=== PATIENT | male | born 2000 | race Hispanic/Latino ===

== ENCOUNTER 2024-07-11 06:41 | Emergency (ER) | payer BC ==
[2024-07-11] MEDS ORDERED: FAMOTIDINE 20 MG/2 ML VIAL IV ONE (08:19)
[2024-07-11] MEDS ORDERED: ONDANSETRON 4 MG/2 ML VIAL ONE (08:19)
[2024-07-11] MEDS ORDERED: NA CHLORIDE 0.9% 1,000 ML ONE (08:20)
--- OUTSIDE RECORDS SUMMARY | 2024-07-11 08:51 | XMS REPORT | Clinical Summary ---
Author Name Unknown Organization [facility] Address [address] [place] [address] Care Team Providers Care Workforce Manager Name Role Phone Michelle Veronica MD Primary Care Provider [phone] Social History Tobacco Use Types Packs/Day Years Used Date Smoking Tobacco: Never Assessed Sex and Gender Information Value Date Recorded Sex Assigned at Not on file Gender Identity Not on file Sexual Orientation Not on file Plan of Treatment Health Maintenance Due Date Last Done Comments COVID-19 Vaccine (2023-2 5 season) 2024 10/04/2020, 09/06/2020 Influenza Vaccine (#1) 2024 07/03/2019 Pneumococcal Vaccine: Pediatrics (0 to 5 Years) and At-Risk Patients (6 to 64 Years) Aged Out No longer eligible b ased on patient's age to complete this topic Care Teams Workforce Manager Relationship Specialty Start Date End Date Michelle Veronica MD [facility] [place] [address] [email or web address] PCP - General Gynecological Oncology 06/03/21
[2024-07-11 08:53] LABS: Albumin 4.2 g/dL (3.4-5.0); Anion Gap 7.1 mEq/L (5.0-15.0); Bilirubin Total 0.3 mg/dL (0.2-1.0); Globulin 4.1 g/dL (2.3-3.5); Potassium 4.1 mEq/L (3.5-5.1); Protein, Total 8.3 g/dL (6.4-8.2)
[2024-07-11 08:57] LABS: Absolute Basophils 0.1 K/uL (0-0.5); Absolute Eosinophils 0.2 K/uL (0-0.5); Absolute Lymphocytes (CBC) 0.9 K/uL (0.7-4.9); Absolute Monocytes 1.2 K/uL (0.1-1.3); Absolute Neutrophil 16.1 K/uL (1.8-8.0); Basophils % 0.3 % (0-1.3); Eosinophils % 0.9 % (0-4.4); Hematocrit 45.3 % (39.6-49.0); Lymphocytes % 4.9 % (15.3-44.8); MCH 27.8 pg (27.0-35.0); MCHC 33.1 g/dL (32.0-36.0); MCV 83.9 fL (80-100); MPV 7.9 fL (7.6-11.3); Monocytes % 6.4 % (3.3-12.3); Neutrophils % 87.5 % (41.7-73.7); Platelets 292 thou/uL (152-406); RBC Red Blood Cell Count 5.39 M/uL (4.33-5.43); Red Cell Distribution Width 13.5 % (12.1-15.2)
[2024-07-11 08:58] LABS: Blood Morphology Comment NOT SEEN (NOT SEEN); Differential Total Cells Count 100; Eosinophils 3 % (0-3); Lymphocytes 9 % (15-42); Monocytes 5 % (0-10); Platelet Estimate ADEQ; Segmented Neutrophils 83 % (40-80)
--- NOTE | 2024-07-11 09:00 | RAD REPORT ---
EXAMINATION: CT ABDOMEN AND PELVIS WITH CONTRAST CLINICAL INDICATION: ABD PAIN TECHNIQUE: CT abdomen and pelvis was performed, after the administration of IV contrast, as per [facility] protocol. Axial, sagittal and coronal reconstructions were obtained. One or more of the following dose reduction techniques were used: Automated exposure control, adjustment of the mA and k V according to patient size, and iterative reconstruction. Unless otherwise specified, incidental findings do not require dedicated imaging follow-up. COMPARISON: No prior exam. FINDINGS: LOWER CHEST: The visualized lung bases are clear. LIVER: Normal in size and contour. No focal lesion. Grossly unremarkable gallbladder. SPLEEN: Normal size. No focal lesion. PANCREAS: No mass, ductal dilation, or vadim-pancreatic fluid. ADRENALS: Normal; no mass. KIDNEYS: Normal size and contour. No hydronephrosis. GASTROINTESTINAL TRACT: No evidence of free air, significant intra-abdominal free fluid, bowel obstru ction or abscess. Fluid distention of small bowel loops noted. APPENDIX: Normal appendix. LYMPH NODES: No lymphadenopathy. MUSCULOSKELETAL: Mild levoscoliosis of the lumbar spine. ADDITIONAL FINDINGS: None. IMPRESSION: Nonspecific fluid distention of small bowel loops suggests enteritis or ileus.
--- NOTE | 2024-07-11 09:41 | ER ---
Nurse's Notes [facility] Name: Rambo Kim Age: 24 yrs Sex: Male : 2000 Arrival Date: 07/11/2024 Time: 06:26 Bed 4 Private MD: Diagnosis: Nausea with vomiting, unspecified;Diarrhea, unspecified Presentation: 07/11 06:40 Chief complaint: Patient states: nausea, vomiting, diarrhea, and abdominal pain. ha1 06:40 Coronavirus screen: Vaccine status: Patient reports being unvaccinated. Ebola Screen: ha1 No symptoms or risks identified at this time. Initial Sepsis Screen: Does the patient meet any 2 criteria? No. Patient's initial sepsis screen is negative. Does the patient have a suspected source of infection? No. Patient's initial sepsis screen is negative. Risk Assessment: Do you want to hurt yourself or someone else? Patient reports no desire to harm self or others. Onset of symptoms was July 11, 2024. 06:40 Method Of Arrival: Ambulatory ha1 06:40 Acuity: SAMSON 3 ha1 Triage Assessment: 06:40 General: Appears uncomfortable, Behavior is calm, cooperative. Pain: Complains of pain ha1 in abdomen Pain does not radiate. Pain currently is 5 out of 10 on a pain scale. Quality of pain is described as crampy, Pain began suddenly, 2-3 days ago. Neuro: Level of Consciousness is awake, alert, obeys commands, Oriented to person, place, time, situation. Cardiovascular: Capillary refill < 3 seconds Patient's skin is warm and dry. Respiratory: Airway is patent Respiratory effort is even, unlabored, Respiratory pattern is regular, symmetrical. GI: Abdomen is flat, non-distended, Reports lower abdominal pain, upper abdominal pain, diarrhea, nausea, vomiting. Historical: - Allergies: 06:53 No Known Allergies; ha1 - PMHx: 06:53 None; ha1 - Immunization history:: Adult Immunizations up to date. - Infectious Disease History:: Denies. - Social history:: Smoking status: Patient denies any tobacco usage or history of. Screenin:02 [facility] ED Fall Risk Assessment (Adult) History of falling in the last 3 months, iw including since admission No falls in past 3 months (0 pts) Confusion or Disorientation No (0 pts) Intoxicated or Sedated No (0 pts) Impaired Gait No (0 pts) Mobility Assist Device Used No (0 pt) Altered Elimination No (0 pt) Score/Fall Risk Level 0 - 2 = Low Risk Oriented to surroundings. Abuse screen: Denies injuries from another. Nutritional screening: No deficits noted. Tuberculosis screening: No symptoms or risk factors identified. Assessment: 08:02 General: Appears in no apparent distress. Behavior is calm, cooperative. Neuro: Level iw of Consciousness is awake, alert, obeys commands, Oriented to person, place, time, situation, Moves all extremities. Full function. Cardiovascular: Patient's skin is warm and dry. Respiratory: Respiratory effort is even, unlabored, Respiratory pattern is regular, symmetrical. GI: Reports nausea, vomiting. GI: Abdomen is non-distended. Derm: Skin is intact, is healthy with good turgor. Musculoskeletal: Range of motion: intact in all extremities. 08:03 Reassessment: pt requesting to sign out AMA, Dr. Maravilla notified. iw 09:00 Reassessment: Patient appears in no apparent distress at this time. Patient and/or hb family updated on plan of care and expected duration. Pain level reassessed. Patient is alert, oriented x 3, equal unlabored respirations, skin warm/dry/pink. 10:02 Reassessment: Patient appears in no apparent distress at this time. Patient is alert, hb oriented x 3, equal unlabored respirations, skin warm/dry/pink. Patient states feeling better. Patient states symptoms have improved. Vital Signs: 06:40 BP 132 / 79; Pulse 95; Resp 17 S; Temp 98.3(O); Pulse Ox 100% on R/A; Weight 111.13 kg; ha1 Height 6 ft. 0 in. ; 09:30 BP 128 / 78; Pulse 84; Resp 16; Pulse Ox 99% on R/A; hb 06:40 Body Mass Index 33.23 (111.13 kg, 182.88 cm) ha1 ED Course: 06:26 Patient arrived in ED. [id number] 06:53 Triage completed. ha1 07:03 Inserted saline lock: 20 gauge in left antecubital area, using aseptic technique. Blood ha1 collected. Flushed with 10 mL NS. 07:05 Carlos Manuel Maravilla DO is Attending Physician. ms3 07:58 Danita Cherry, RN is Primary Nurse. iw 08:03 Patient has correct armband on for positive identification. Provided Education on: . iw 08:15 Arm band placed on. hb 08:55 CT Abd/Pelvis - IV Contrast Only In Process Unspecified. EDMS 09:41 Jeromy Mcconnell DO is Referral Physician. ms3 10:03 No provider procedures requiring assistance completed. IV discontinued, intact, hb bleeding controlled, No redness/swelling at site. Pressure dressing applied. Administered Medications: 08:28 Drug: NS 0.9% IV 1000 ml IV at 1000 ml once; to be given as a bolus over 60 minutes iw Route: IV; Rate: 1000 ml; Site: left antecubital; 10:00 Follow up: IV Status: Completed infusion iw 08:28 Drug: Ondansetron IVP 4 mg IVP once; over 2 minutes Route: IVP; Site: left antecubital; iw 09:00 Follow up: Response: No adverse reaction iw 08:28 Drug: Famotidine IVP 20 mg IVP once; dilute with 10 mL 0.9% NaCl; give over 2 minutes iw Route: IVP; Site: left antecubital; 10:07 Follow up: Response: No adverse reaction iw Medication: 08:02 VIS not applicable for this client. iw Outcome: 09:41 Discharge ordered by MD. ms3 10:03 Discharged to home ambulatory, with family, hb 10:03 Condition: stable 10:03 Discharge instructions given to patient, family, Instructed on discharge instructions, follow up and referral plans. medication usage, Demonstrated understanding of instructions, follow-up care, medications, Prescriptions given X 1, 10:03 Patient left the ED. hb Signatures: Dispatcher [employer] EDMS Danita Cherry, RN RN iw Elyse Ashraf, RN RN hb Carlos Manuel Maravilla DO DO ms3 Garima Ashraf [email or web address] Zeenat Clemens, RN RN ha1
--- NOTE | 2024-07-11 09:41 | EDPHYS ---
Physician Documentation [facility] Name: Rambo Kim Age: 24 yrs Sex: Male : 2000 Arrival Date: 07/11/2024 Time: 06:26 Bed 4 Private MD: ED Physician Carlos Manuel Maravilla HPI: 07/11 07:36 This 24 yrs old Male presents to ER via Ambulatory with complaints of Nausea/Vomiting, ms3 Abdominal Pain. 07:36 24 year old male presents with nausea and vomiting beginning at approximately 2 a.m. ms3 The patient reported vomiting at least ten times and also vomited once in the lobby. There was associated abdominal discomfort, which the patient described as a mild, uneasy feeling in the stomach. The patient rated the abdominal discomfort at a level of 2 out of 10 in severity. The patient attempted to alleviate the symptoms by drinking fluids, which helped some. The patient did not report any fever, chills, breathing problems, or chest pain.. Historical: - Allergies: 06:53 No Known Allergies; ha1 - PMHx: 06:53 None; ha1 - Immunization history:: Adult Immunizations up to date. - Infectious Disease History:: Denies. - Social history:: Smoking status: Patient denies any tobacco usage or history of. ROS: 07:36 Constitutional: Negative for fever, and chills. Cardiovascular: Negative for chest ms3 pain, and palpitations. Respiratory: Negative for shortness of breath, cough, wheezing, and pleuritic chest pain, 07:36 MS/Extremity: Negative for injury and deformity, Skin: Negative for injury, rash, and discoloration, 07:36 Abdomen/GI: Positive for abdominal pain, nausea, vomiting, and diarrhea, Exam: 07:36 Constitutional: This is a well developed, well nourished patient who is awake, alert, ms3 and in no acute distress. Chest/axilla: Normal chest wall appearance and motion. Nontender with no deformity. Cardiovascular: Regular rate and rhythm with a normal S1 and S2. No gallops, murmurs, or rubs. Normal PMI, no JVD. No pulse deficits. Respiratory: Lungs have equal breath sounds bilaterally, clear to auscultation and percussion. No rales, rhonchi or wheezes noted. No increased work of breathing, no retractions or nasal flaring. Abdomen/GI: Soft, non-tender, with normal bowel sounds. No distension or tympany. No guarding or rebound. No evidence of tenderness throughout. Skin: Warm, dry with normal turgor. Normal color with no rashes, no lesions, and no evidence of cellulitis. MS/ Extremity: Pulses equal, no cyanosis. Neurovascular intact. Full, normal range of motion. Vital Signs: 06:40 BP 132 / 79; Pulse 95; Resp 17 S; Temp 98.3(O); Pulse Ox 100% on R/A; Weight 111.13 kg; ha1 Height 6 ft. 0 in. ; 09:30 BP 128 / 78; Pulse 84; Resp 16; Pulse Ox 99% on R/A; hb 06:40 Body Mass Index 33.23 (111.13 kg, 182.88 cm) ha1 MDM: 07:12 Medical Screening Exam initiated ms3 07:36 Differential diagnosis: Nonspecific abd pain, gastritis, viral gastroenteritis, ms3 gastroenteritis. 08:07 ED course: Patient was wanting to leave the emergency department AGAINST MEDICAL ms3 ADVICE. Discussed patient's elevated white blood count at 18.4 with patient. White blood count likely elevated secondary to multiple bouts of emesis. Discussed necessity for further workup and patient agrees with further workup and CT of his abdomen pelvis. Will give patient 1 L normal saline. P. 11:00 Data reviewed: vital signs, nurses notes, lab test result(s), radiologic studies, and ms3 as a result, I will discharge patient. I considered the following discharge prescriptions or medication management in the emergency department Medications were administered in the Emergency Department. See MAR. Counseling: I had a detailed discussion with the patient and/or guardian regarding the historical points, exam findings, and any diagnostic results supporting the discharge/admit diagnosis, lab results, radiology results, the need for outpatient follow up, to return to the emergency department if symptoms worsen or persist or if there are any questions or concerns that arise at home. Special discussion: Based on the patient's Hx, exam, and Dx evaluation, there is no indication for emergent surgery or inpatient Tx. It is understood by the patient/guardian that if the Sx's persist or worsen they need to return immediately for re-evaluation. ED course: Discussed labs and CT scan findings with patient. Discussed possible ileus with patient; however, patient is tolerating p.o. without emesis at time of discharge. On reevaluation patient is alert and oriented x 4, no apparent distress, nontoxic-appearing, ambulatory to emerge department, tolerating p.o. Patient to follow-up with primary care physician in 2 to 3 days. Patient understands and agrees with plan. All questions were answered. Return precautions discussed include worsening symptoms, or any other concerns.. 07/11 06:37 Order name: CBC with Diff; Complete Time: 09:34 ec2 07/11 06:37 Order name: CMP; Complete Time: 09:34 ec2 07/11 06:37 Order name: Lipase; Complete Time: 09:34 ec2 07/11 08:59 Order name: Manual Differential; Complete Time: 09:34 EDMS 07/11 08:06 Order name: CT Abd/Pelvis - IV Contrast Only; Complete Time: 09:34 ms3 07/11 06:37 Order name: IV Saline Lock; Complete Time: 07:02 ec2 07/11 06:37 Order name: Labs collected and sent; Complete Time: 07:02 ec2 Administered Medications: 08:28 Drug: NS 0.9% IV 1000 ml IV at 1000 ml once; to be given as a bolus over 60 minutes iw Route: IV; Rate: 1000 ml; Site: left antecubital; 10:00 Follow up: IV Status: Completed infusion iw 08:28 Drug: Ondansetron IVP 4 mg IVP once; over 2 minutes Route: IVP; Site: left antecubital; iw 09:00 Follow up: Response: No adverse reaction iw 08:28 Drug: Famotidine IVP 20 mg IVP once; dilute with 10 mL 0.9% NaCl; give over 2 minutes iw Route: IVP; Site: left antecubital; 10:07 Follow up: Response: No adverse reaction iw Disposition Summary: 07/11/24 09:41 Discharge Ordered Notes: Location: Home ms3 Condition: Stable ms3 Diagnosis - Nausea with vomiting, unspecified ms3 - Diarrhea, unspecified ms3 Followup: ms3 - With: Jeromy Mcconenll, DO - When: 2 - 3 days - Reason: Recheck today's complaints Discharge Instructions: - Discharge Summary Sheet ms3 - Food Choices to Help Relieve Diarrhea, Adult ms3 - Diarrhea, Adult ms3 - Nausea and Vomiting, Adult ms3 Forms: - Medication Reconciliation Form ms3 - Antibiotic Education ms3 - Prescription Opioid Use ms3 - Patient Portal Instructions ms3 - Leadership Thank You Letter ms3 Prescriptions: - ondansetron 4 mg Oral Tablet,disintegrating - take 1 tablet ORAL route every 8 hours; 15 tablet; Refills: 0, Product ms3 Selection Permitted Signatures: Dispatcher [employer] Danita Estrella RN RN iw Sims, Marcus, DO DO ms3 Zeenat Clemens RN RN ha1 Arnel Cantu MD MD ec2
[2024-07-11 10:21] VITALS: BP 128/78; O2SAT 99
== END 2024-07-11 10:03 | disposition home or self-care (01) ==
LOC: ER 06:41
DX: R11.2 Nausea with vomiting, unspecified (principal); R19.7 Diarrhea, unspecified
CPT/HCPCS: 96361; 85025; 36415; 83690; 80053; 74177; 96375; 96374; 99284; Q9967; J2405; J7030